=== PATIENT | male | born 1955 | race Caucasian/White ===

== ENCOUNTER → 2021-07-12 | Outpatient (CLI) | payer MEDICARE ==
--- NOTE | 2021-07-12 16:43 | US ---
EXAMINATION TYPE: US prostate transrectal DATE OF EXAM: 07/12/2021 COMPARISON: NONE CLINICAL HISTORY: R97.8 ABNORMAL TUMOR MARKERS. Elevated PSA This examination was performed using the transrectal probe. EXAM MEASUREMENTS: Gland Size: 5.0 x 4.5 x 3.4 cm Volume: 39.6 Predicted PSA: 4.75 Actual PSA (if available):6.3 per patient Isoechoic nodule seen, peripheral vs central zone = 0.9 x 0.9 x 0.8 cm. Initial images show seminal vesicles appear within normal limits. There is heterogeneous enlarged pro state gland with focal 9 mm slightly hypoechoic left-sided nodule towards the apex. There is addition al 9 mm hyperechoic right-sided nodule laterally towards the apex. IMPRESSION: Slightly enlarged prostate with suspicious nodules. Advise sampling. Predicted PSA = volume x 0.12 ng/ml Calculated Volume = 0.5236 x L x W x H
== END | disposition home or self-care (01) ==
LOC: RADUSWWP 09:29
PROVIDERS: ATTEND Family Medicine
DX: R97.8 Other abnormal tumor markers (principal); N40.0 Benign prostatic hyperplasia without lower urinary tract symptoms
CPT/HCPCS: 76872